=== PATIENT | male | born 1980 | race American Indian/Alaskan Native ===

== ENCOUNTER 2018-02-13 10:03 | Emergency (ER) | payer SELFPAY ==
--- NOTE | 2018-02-13 10:13 | C.PDOC ---
History Of Present Illness 38-year-old male presents to the ED complaining of left-sided dental pain to the upper and lower areas since yesterday. Patient reports history of prior tooth pain in the same area several years ago. Denies trauma to the area. Patient notes pain and swelling to the area. Also denies fever and chills. Patient has a history of smoking. NEW ONSET DENTAL PAIN L TOP AND BOTTOM TOOTH SINCE YEST. PS HO PRIOR TOOTH PAIN TO SAME AREA "MANY YEARS AGO". NO TRAUMA. CO PAIN AND SWELLING TO AREA. NO FEVER. HO SMOKING. EXAM MILD DIST NONTOXIC HEENT +SWELL GUM ABOVE L TOP CANINE AND LOWER L 1,2 MOLAR. NONFLUCTUANT. +DARK COLORED LESIONS GINGIVA SCATTERED, NONTEND, NONFRIABLE. +TOOTH TEND, NO SUBLUX. MDM PT ADVISED STOP SMOKING, NEED FOR DENTAL EVAL OTIS ALSO FOR GUM ABN. WARM SALT WATER GARGLE, ABX Time Seen by Provider: 02/13/18 10:10 Chief Complaint (Nursing): Dental Pain History Per: Patient History/Exam Limitations: no limitations Onset/Duration Of Symptoms: Days Current Symptoms Are (Timing): Still Present Past Medical History Reviewed: Historical Data, Nursing Documentation, Vital Signs Vital Signs: Last Vital Signs Temp 98.3 F 02/13/18 10:12 Pulse 110 H 02/13/18 10:12 Resp 20 02/13/18 10:12 BP 134/91 H 02/13/18 10:12 Pulse Ox 98 02/13/18 10:12 - Medical History PMH: No Chronic Diseases Surgical History: No Surg Hx Family History: States: No Known Family Hx - Social History Hx Tobacco Use: Yes Hx Alcohol Use: Yes Hx Substance Use: No Review Of Systems Except As Marked, All Systems Reviewed And Found Negative. Constitutional: Negative for: Fever, Chills ENT: Positive for: Other (Left dental pain and swelling) Physical Exam - Physical Exam Appears: Non-toxic, In Acute Distress (mild) Skin: Normal Color, Warm, Dry Head: Atraumatic, Normacephalic Eye(s): bilateral: Normal Inspection, PERRL, EOMI Nose: Normal Oral Mucosa: Moist Teeth: Tender To Palpation (but no subluxation) Gingiva: Swelling (Swelling to the gum above left top canine and left lower 1,2 molars, nonfluctuant), No Tender, Other (Dark-colored lesions scattered to gingiva, nonfriable) Neck: Normal ROM, Supple Chest: Symmetrical Respiratory: Other (NARD) Neurological/Psych: Oriented x3, Normal Speech ED Course And Treatment O2 Sat by Pulse Oximetry: 98 (RA) Pulse Ox Interpretation: Normal Progress - Re-Evaluation Re-evaluation Note: 02/13/18 10:13 NO RESULTS [facility]MENT[facility] [employer]INEER SEARCH - Continuity of Care Discussed pt. case with human resource consultant/specialty: Other ([facility]) Medical Decision Making Medical Decision Making: Patient advised to stop smoking, and of the importance of follow up with a dentist for evaluation nof abnormal gums. Instructed patient to gargle warm salt water and take antibiotics as prescribed. Patient is stable for discharge home. Disposition Counseled Patient/Family Regarding: Diagnosis, Need For Followup, Rx Given - Disposition Referrals: YOUR,DENTIST [Other] Disposition: HOME/ ROUTINE Disposition Time: 10:23 Condition: IMPROVED Prescriptions: Acetaminophen with Codeine [Tylenol with Codeine No. 3 300 mg-30 mg] 1 tab PO Q6 PRN #12 tab PRN Reason: Pain, Moderate (4-7) Penicillin VK [Penicillin VK Tab] 2 tab PO BID #28 tab Instructions: Dental Pain (DC) Forms: Work Excuse, [facility] ([employer]) - Clinical Impression Clinical Impression: Dentalgia - Scribe Statement The provider has reviewed the documentation as recorded by the Scribe (Belen Patton) Provider Attestation: All medical record entries made by the Scribe were at my direction and personally dictated by me. I have reviewed the chart and agree that the record accurately reflects my personal performance of the history, physical exam, medical decision making, and the department course for this patient. I have also personally directed, reviewed, and agree with the discharge instructions and disposition.
[2018-02-13 10:22] VITALS: BP 134/91; PULSE 110; RESP 20; TEMP 98.3; O2SAT 98
== END 2018-02-13 10:28 | disposition home or self-care (01) ==
LOC: C.ER 10:03
DX: K08.89 Other specified disorders of teeth and supporting structures (principal)